=== PATIENT | female | born 1975 | race Caucasian/White ===

== ENCOUNTER → 2025-01-15 10:14 | Outpatient (REF) | payer OTHER, SELFPAY | LOC: WDC 10:14 | PROVIDERS: ATTENDING PHYSICIAN Nurse Practitioner Family; FAMILY PHYSICIAN Physician Assistant Medical | DX: R92.2 Inconclusive mammogram (principal) | CPT/HCPCS: 76641 ==

== ENCOUNTER → 2025-01-23 12:56 | Outpatient (REF) | payer OTHER, SELFPAY | LOC: RAD 12:56 | PROVIDERS: ATTENDING PHYSICIAN Specialist; FAMILY PHYSICIAN Physician Assistant | DX: N31.9 Neuromuscular dysfunction of bladder, unspecified (principal) | CPT/HCPCS: 76770 ==

== ENCOUNTER 2025-05-28 15:58 | Emergency (ER) | payer OTHER, SELFPAY ==
[2025-05-28 16:03] VITALS: BP 130/84
--- NOTE | 2025-05-28 18:07 | ED.GENMED ---
History of Present Illness
General
Chief Complaint: Urinary Symptoms
Source: patient
Exam Limitations: none
Time Seen by Provider: 05/28/25 18:06
Nursing documentation reviewed up to this point in time: agreed with
History of Present Illness
History of Present Illness:
49-year-old female with T8 incomplete spinal cord injury and has a suprapubic catheter presents for bloody drainage from the catheter since it was changed by visiting nurse this morning at 930. Prior to the catheter change it was draining normally.
She also has generalized abdominal pain 03/10 since noticing the bloody urine. Denies n/v/d/c. Denies fever/chills.
Past History
Past History
ED Past Medical History: Other (Paraplegia, )
ED Past Surgical History: Orthopedic (Spine repair, rods) and Urological (Suprapubic Martinez catheter placed 10/12/[address] Ana Rojo [facility])
Social History
Tobacco: Non-smoker
Alcohol: None
Drug: None
Personal:
Living: with family
Review of Systems
Review of Systems
Allergies reviewed?: Yes
All Other Systems: ROS reviewed and negative except as documented in HPI and ROS
Constitutional: Denies fever, fatigue or chills
ABD/GI: Reports abdominal pain; Denies nausea, vomiting or diarrhea
: Reports other (bloody drainage from suprapubic catheter)
Neurological: Reports other (paraplegia)
Phy Exam
Physical Exam
Physical Exam:
GENERAL: No acute distress. A&Ox3.
CONSTITUTIONAL: Afebrile.
EYES: clear, conjunctivae normal
ENMT: moist mucus membranes, Pharynx nl
RESPIRATORY: Regular respirations, nonlabored, lungs clear.
CARDIOVASCULAR: Regular rate and rhythm, no murmurs, no rubs.
GI: Soft, nontender, normal BS
MUSCULOSKELETAL: Paraplegia, cannot move legs.
SKIN: Warm, dry, pink
PSYCH: Normal mood and affect. Well kept, interactive and appropriate
NEUROLOGIC: Awake, alert and oriented. Paraplegia.
Course
Orders/Labs/Results
Orders:
Orders
05/28/25 18:14
CT Abd/pelvis W Iv Cont Urgent
Comment:
Reason For Exam: general abd pain, hematuria, suprapubic tube
05/28/25 18:37
Complete Blood Count/With Diff Urgent
Comprehensive Metabolic Panel Urgent
Urinalysis Reflex To Culture Urgent
Date Specimen was Collected: 05/28/25
Time Specimen was Collected: 18:24
Urine Microscopic Reflex Cult Urgent
Urine Culture Urgent
IZABELA Source: U
Specimen Description:
Date Specimen was Collected: 05/28/25
Time Specimen was Collected: 18:24
05/28/25 20:32
Ketorolac [Toradol] 15 mg IV NOW STA
05/28/25 21:09
Ciprofloxacin HCl [Cipro] 250 mg PO NOW STA
Abnormal Lab Results
05/28/25
18:37
MCHC 32.9 L g/dL
(33.0-37.0)
MPV 13.1 H fL
(7.4-10.4)
Sodium 132 L mmol/L
(135-145)
Ur Occult Blood Reflex 4+ A
(Negative)
Leukocyte Esterase Rfl 2+ A
(Negative)
Urine RBC 3-6 A /HPF
(0-2)
Urine WBC (Reflex) 11-15 A /HPF
(0-5)
Urine Bacteria (Reflex) Few A
(Negative)
Urine Albumin (Reflex) 2+ A
(Neg - Trace)
05/28/25 18:37
05/28/25 18:37
Vital Signs
Initial and Last Documented VS:
Initial Vital Signs
Temp Pulse Resp BP Pulse Ox
97.5 F 75 20 130/84 98
05/28/25 16:03 05/28/25 16:03 05/28/25 16:03 05/28/25 16:03 05/28/25 16:03
Last Documented Vital Signs
Temp Pulse Resp BP Pulse Ox
97.5 F 74 16 105/64 95
05/28/25 16:03 05/28/25 20:29 05/28/25 18:45 05/28/25 21:01 05/28/25 20:39
Gymnasium Teacher consulted with Physician
Gymnasium Teacher consulted with physician?: Yes
Name of Physician Consulted: Shay
MDM/Problems Addressed
Differential Diagnosis Includes:
UTI, hemorrhagic cystitis, kidney stone, traumatic suprapubic tube insertion
MDM/Problems Addressed:
49-year-old female with T8 incomplete spinal cord injury and has a suprapubic catheter presents for bloody drainage from the catheter since it was changed by visiting nurse this morning at 930. Prior to the catheter change it was draining normally.
She also has generalized abdominal pain 8/10 since noticing the bloody urine. Denies n/v/d/c. Denies fever/chills.
She also has pain down inner aspect of both thighs 'like nerve pain' that she has had in the past.
Afebrile, NAD
Urine is clear but cranberry colored with tiny clots noted
Pt states VN had no trouble inserting it.
CBC normal
CMP normal UA: WBCs 11-15
With few bacteria negative nitrites, 2+ leukocytes, 4+ occult blood, 3-6 RBCs
CAT scan abdomen pelvis radiology report read: IMPRESSION:
Suprapubic catheter in place. The urinary bladder is collapsed. . No obstructive uropathy.
Incidental subtle nodularity of the liver surface raising the possibility of cirrhosis in the proper clinical setting.
Moderate colonic fecal burden.
Incidental 3.4 mm groundglass nodule in the right middle lobe. No follow-up indicated.
Will treat for UTI, pt states she's had many and usually is given Cipro. Rx for Cipro sent to her pharmacy
Case discussed with Dr. Day who agrees with plan
*Pulse Oximetry
SaO2: 98
Oxygen Mode of Delivery: Room air
Patient hypoxic: not evaluated
*Critical Care Note
Total Time (30-74mins, 75-104mins- exclusive of procedures): Not Applicable
ED Attending Note
-
Portions of this chart may have been created with voice recognition software.� Occasional wrong word or��sound alike� substitutions may have occurred due to the inherent limitations of voice recognition software.
Discharge Plan
Departure
Patient Disposition: Home (Routine Discharge)
Date of Disposition: 05/28/25
Time of Disposition: 21:00
Patient with high blood pressure during this ER visit?: No
Condition: Good
Discharge Problem:
UTI (urinary tract infection)
Instructions: Urinary Tract Infection, Adult (DC)
Prescriptions:
New
ciprofloxacin HCl 250 mg tablet
250 mg PO Q12H Qty: 6 0RF
No Action
hydrocodone-acetaminophen 5-325 mg tablet
1 tab PO Q8H PRN (Reason: pain) Qty: 10 0RF
Referrals:
Yumiko Shaw MD [Family Provider, Family Practice] - As needed
Activity Restrictions/Additional Instructions:
As we discussed, you have a few white blood cells in your urine as well as leukocytes so I am treating you for an early urinary tract infection/cystitis.
I sent a prescription to your pharmacy for Cipro to take twice daily (every 12 hours) for 3 days.
Interventions
Interventions:
*Risk Screen - Suicide Last Done: 05/28/25 16:03
*General Assessment Last Done: 05/28/25 18:25
*Neglect/Abuse Screening Last Done: 05/28/25 16:03
*ED- Fall Risk Assessment Last Done: 05/28/25 18:25
*ED COVID-19 Vaccine History Last Done: 05/28/25 18:25
*ED Influenza Vaccine History Last Done: 05/28/25 18:25
*Nursing Disposition Last Done: 05/28/25 21:30
ED-Female Genitourinary Assessment Last Done: 05/28/25 18:41
Discharge Date and Time
Discharge Date/Time: 05/28/25 21:31
Print Language: MAURITANIAN
--- NOTE | 2025-05-28 18:10 | EDRN ---
David ESCOBAR in room w/ pt at this time.
[2025-05-28 18:41] VITALS: BMI 31.4
[2025-05-28 18:45] VITALS: BP 117/68
[2025-05-28 18:45] LABS: Urine Character Clear (Clear)
[2025-05-28 18:48] LABS: Hematocrit 42.5 % (37.0-47.0); Hemoglobin 14.0 g/dL (12.0-16.0); Mean Corp Hgb Conc. 32.9 g/dL (33.0-37.0); Mean Corpuscular Volume 89.9 fL (81.0-99.0); Nucleated Red Blood Cells % 0 %; Platelet Count 145 10^3/uL (130-400); Red Cell Dist. Width 12.6 % (11.5-14.5)
[2025-05-28 18:57] LABS: ALT (SGPT) 30 U/L (0-35); AST (SGOT) 35 U/L (14-36); Albumin 4.3 g/dl (3.5-5.0); Alkaline Phosphatase 75 U/L (38-126); Blood Urea Nitrogen 10 mg/dl (7-17); Calcium 9.6 mg/dl (8.4-10.2); Carbon Dioxide 28 mmol/L (22-30); Chloride 98 mmol/L (98-107); Estimated Creatinine Clearance 117 ml/min; Glucose 83 mg/dl (70-99); Potassium 3.8 mmol/L (3.5-5.1); Sodium 132 mmol/L (135-145); Total Protein 7.3 g/dl (6.3-8.2); eGFR > 60.00
[2025-05-28 20:18] VITALS: BP 104/78
[2025-05-28] MEDS: TORADOL 15 MG IV (20:36)
[2025-05-28 21:01] VITALS: BP 105/64
[2025-05-28] MEDS: CIPRO 250 MG PO (21:25)
== END 2025-05-28 21:31 | disposition home or self-care (01) ==
LOC: EMR 15:58
PROVIDERS: Registered Nurse; EMERGENCY PHYSICIAN Emergency Medicine; FAMILY PHYSICIAN Student in an Organized Health Care Education/Training Program
DX: N39.0 Urinary tract infection, site not specified (principal); G82.20 Paraplegia, unspecified
CPT/HCPCS: 99284; 96374; 74177; 80053; 81003; 81015; 85025; 87086; Q9967

== ENCOUNTER → 2025-07-05 11:17 | Outpatient (REF) | payer OTHER, SELFPAY | LOC: RAD 11:17 | PROVIDERS: ATTENDING PHYSICIAN Student in an Organized Health Care Education/Training Program | DX: M79.605 Pain in left leg (principal); M79.89 Other specified soft tissue disorders | CPT/HCPCS: 93971 ==